=== PATIENT | female | born 1990 | race Caucasian/White ===

== ENCOUNTER 2017-10-17 08:15 | Day surgery (SDC) | payer OTHER ==
[~2017-10-17] VITALS: Ht 185.4 cm; Wt 89.3 kg
[2017-10-17] MEDS ORDERED: IBUP-1222 PO (09:05)
[2017-10-17] MEDS ORDERED: HYDR-3240 PO (09:05)
[2017-10-17] MEDS ORDERED: LACTATED RINGERS 1,000 ML IV SCH (09:07)
[2017-10-17 09:15] LABS: HCG UR SG 1.041 (1.003-1.030)
[2017-10-17 09:16] VITALS: BP 148/72
[2017-10-17] MEDS ORDERED: GABAPENTIN 300 MG CAPSULE PO ONE (09:30)
[2017-10-17] MEDS ORDERED: PLEASE ENTER HEIGHT AND WEIGHT MC SCH (09:30)
[2017-10-17] MEDS ORDERED: SCOPOLAMINE PATCH, 1.5MG PATCH.TD72 TD ONE (09:30)
[2017-10-17] MEDS ORDERED: ACETAMINOPHEN 500 MG TABLET PO ONE (09:30)
[2017-10-17] MEDS ORDERED: FAMOTIDINE 20 MG TABLET PO ONE (09:30)
[2017-10-17] MEDS ORDERED: FENTANYL PF 100 MCG/2ML ONE ×2 (09:45→12:10)
[2017-10-17] MEDS ORDERED: MIDAZOLAM 1 MG/ML, 2ML ONE (09:45)
[2017-10-17] MEDS ORDERED: BUPIVACAINE/PF 0.5% ONE (10:27)
[2017-10-17] MEDS ORDERED: NEOSPORIN OINT, 15GM ONE (10:27)
[2017-10-17] MEDS ORDERED: EPINEPHRINE 1 MG/ML, 1ML ONE (10:27)
[2017-10-17] MEDS ORDERED: MEPERIDINE/PF 25MG/0.5ML IVPush PRN (11:00)
[2017-10-17] MEDS ORDERED: LABETALOL 5MG/ML, 20ML IV PRN (11:00)
[2017-10-17] MEDS ORDERED: DIAZEPAM 5 MG/ML, 2ML IVPush PRN (11:00)
[2017-10-17] MEDS ORDERED: PROMETHAZINE 12.5 MG SUPP PR PRN (11:00)
[2017-10-17] MEDS ORDERED: EPHEDRINE 50 MG/ML, 1ML IVPush PRN (11:00)
[2017-10-17] MEDS ORDERED: METOPROLOL 1 MG/ML, 5ML IV PRN (11:00)
[2017-10-17] MEDS ORDERED: MIDAZOLAM 1 MG/ML, 2ML IV PRN (11:00)
[2017-10-17] MEDS ORDERED: ONDANSETRON 2MG/ML, 2ML IVPush PRN (11:00)
[2017-10-17] MEDS ORDERED: OXYcodone 5 MG/5 ML ORAL.SOL UDC PO PRN (11:00)
[2017-10-17] MEDS ORDERED: morphine SULFATE 10 MG/ML, 1ML IV PRN (11:00)
[2017-10-17] MEDS ORDERED: PROMETHAZINE 25 MG/ML, 1ML IV PRN (11:00)
[2017-10-17] MEDS ORDERED: ALBUTEROL SULFATE 2.5 MG/3 ML NPPB PRN (11:00)
[2017-10-17] MEDS ORDERED: HYDROcodone/APAP 7.5-325MG/15ML UDC PO PRN (11:00)
[2017-10-17] MEDS ORDERED: hydrALAzine 20 MG/ML, 1ML IV PRN (11:00)
[2017-10-17] MEDS ORDERED: ONDANSETRON 2MG/ML, 2ML ONE (11:35)
[2017-10-17] MEDS ORDERED: CEFAZOLIN 1,000 MG ONE (11:35)
[2017-10-17] MEDS ORDERED: DEXAMETHASONE 4 MG/ML, 1ML ONE (11:35)
[2017-10-17] MEDS ORDERED: PROPOFOL 10 MG/ML, 20ML ONE (11:35)
[2017-10-17] MEDS ORDERED: OXYcodone 5 MG/5 ML ORAL.SOL UDC ONE (12:10)
[2017-10-17] MEDS: FENTANYL PF 100 MCG/2ML IV PRN ×2 (12:13→12:27)
== END 2017-10-17 15:57 | disposition home or self-care (01) ==
LOC: OUT 08:15
PROVIDERS: ATTEND Orthopaedic Surgery
DX: S82.851A Displaced trimalleolar fracture of right lower leg, initial encounter for closed fracture (principal); S93.491A Sprain of other ligament of right ankle, initial encounter; M22.01 Recurrent dislocation of patella, right knee; X58.XXXA Exposure to other specified factors, initial encounter; Y93.89 Activity, other specified; Y92.89 Other specified places as the place of occurrence of the external cause; Y99.8 Other external cause status
CPT/HCPCS: 27822; 27829; 73610; 76000; 81025; C1713; J0690; J1100; J2250; J2405; J2704; J3010; J7120; J0171; J3490